=== PATIENT | male | born 1955 | race Caucasian/White ===

== ENCOUNTER 2019-11-26 11:58 | Outpatient (CLI) | payer OTHER, SELFPAY ==
--- NOTE | ~2019-11-26 | XR_ITS ---
EXAMINATION: XR chest 2V DATE: 11/26/2019 13:00 INDICATION: Gastroesophageal reflux. Preop. TECHNIQUE: Frontal and lateral views of the chest were obtained. COMPARISON: Chest 2 views 09/12/2018 FINDINGS: The chest demonstrates clear lungs without pneumonia, pleural effusion, or pneumothorax. Th e heart size is normal. IMPRESSION: 1. No acute cardiopulmonary disease. Reviewed, dictated and finalized at location A. 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
--- NOTE | 2019-11-26 12:35 | ECG_ITS ---
Measurements Intervals [place] Rate: 57 P: 54 CA: 153 QRS: -7 QRSD: 113 T: -5 QT: 406 QTc: 397 Interpretive Statements SINUS BRADYCARDIA INTRAVENTRICULAR CONDUCTION DELAY DELAYED PRECORDIAL R/S TRANSITION VOLTAGE CRITERIA FOR LVH MINIMAL Q WAVES- LATERAL LEADS BORDERLINE T WAVE ABNORMALITY- INFERIOR LEADS BORDERLINE ECG Electronically Signed On 11-26-2019 13:11:23 SILK BRUSHER by Mark Sethi D.O.
[2019-11-26 13:12] LABS: Basophils Percent Auto 0.5 % (0.2-1.2); Eosinophils Absolute Auto 0.3 K/mm3 (0-0.3); Eosinophils Percent Auto 3.3 % (0-4.4); Hematocrit 45.7 % (42.0-52.0); Hemoglobin 15.2 g/dL (14.0-18.0); Immature Granulocyte Absolute 0.01 K/mm3 (0.00-0.031); Immature Granulocyte Percent A 0.1 % (0-0.5); Lymphocytes Absolute Auto 2.39 K/mm3 (0.9-3.2); Lymphocytes Percent Auto 30.5 % (18.3-44.2); Mean Corpuscular HGB Conc 33.3 g/dl (32-36); Mean Corpuscular Hemoglobin 30.5 pg (26-34); Mean Corpuscular Volume 91.6 fl (80-100); Mean Platelet Volume 9.7 fl (7.4-10.4); Monocytes Absolute Auto 0.5 K/mm3 (0.1-0.6); Monocytes Percent Auto 6.9 % (2.6-8.5); Neutrophils Absolute Auto 4.6 K/mm3 (1.3-6.7); Neutrophils Percent Auto 58.7 % (45.5-73.1); Platelet Count Result 251 k/mm3 (150-375); Red Blood Count 4.99 M/mm3 (4.6-6.20); Red Cell Distribution Width 12.9 % (11.5-14.5); White Blood Count 7.8 K/mm3 (4.5-10.0)
[2019-11-26 13:18] LABS: Hemoglobin A1C 5.9 % (<5.7); Urine Cotinine NEGATIVE
[2019-11-26 13:21] LABS: Albumin Level 3.9 g/dL (3.5-5.1); Blood Urea Nitrogen 19 mg/dL (9-20); Calcium 9.1 mg/dL (8.4-10.2); Carbon Dioxide 31 mmol/L (22-30); Chloride 103 mmol/L (98-107); Estimated Glomerular Filt Rate > 60; Glucose 90 mg/dL (75-110); Potassium 4.1 mmol/L (3.4-5.0); Sodium 137 mmol/L (137-145)
== END 2019-11-26 11:59 | disposition home or self-care (01) ==
PROVIDERS: PCP Family Medicine; Visit Provider Orthopaedic Surgery
DX: M19.90 Unspecified osteoarthritis, unspecified site (principal); I45.9 Conduction disorder, unspecified
CPT/HCPCS: 36415; 71046; 80048; 80307; 82040; 83036; 85025; 87070; 93005

== ENCOUNTER 2020-02-19 14:57 | Outpatient (CLI) | payer OTHER, SELFPAY ==
[2020-02-19 15:27] LABS: Basophils Percent Auto 0.6 % (0.2-1.2); Eosinophils Absolute Auto 0.1 K/mm3 (0-0.3); Eosinophils Percent Auto 1.7 % (0-4.4); Hematocrit 46.6 % (42.0-52.0); Hemoglobin 15.6 g/dL (14.0-18.0); Immature Granulocyte Absolute 0.01 K/mm3 (0.00-0.031); Immature Granulocyte Percent A 0.1 % (0-0.5); Lymphocytes Absolute Auto 2.06 K/mm3 (0.9-3.2); Lymphocytes Percent Auto 28.4 % (18.3-44.2); Mean Corpuscular HGB Conc 33.5 g/dl (32-36); Mean Corpuscular Hemoglobin 30.4 pg (26-34); Mean Corpuscular Volume 90.8 fl (80-100); Mean Platelet Volume 10.4 fl (7.4-10.4); Monocytes Absolute Auto 0.4 K/mm3 (0.1-0.6); Monocytes Percent Auto 5.8 % (2.6-8.5); Neutrophils Absolute Auto 4.6 K/mm3 (1.3-6.7); Neutrophils Percent Auto 63.4 % (45.5-73.1); Platelet Count Result 244 k/mm3 (150-375); Red Blood Count 5.13 M/mm3 (4.6-6.20); Red Cell Distribution Width 13.3 % (11.5-14.5); White Blood Count 7.3 K/mm3 (4.5-10.0)
[2020-02-19 15:38] LABS: Blood Urea Nitrogen 18 mg/dL (9-20); Calcium 9.3 mg/dL (8.4-10.2); Carbon Dioxide 26 mmol/L (22-30); Chloride 106 mmol/L (98-107); Estimated Glomerular Filt Rate > 60; Glucose 84 mg/dL (75-110); Sodium 138 mmol/L (137-145)
[2020-02-19 16:05] LABS: Urine Cotinine NEGATIVE
== END 2020-02-19 14:58 | disposition home or self-care (01) ==
LOC: ANHSURGERY 14:58
PROVIDERS: PCP Family Medicine; Visit Provider Orthopaedic Surgery
DX: Z01.812 Encounter for preprocedural laboratory examination (principal); M19.90 Unspecified osteoarthritis, unspecified site
CPT/HCPCS: 36415; 80048; 80307; 82040; 85025; 86850; 86900; 86901; 87070

== ENCOUNTER 2020-02-23 00:13 | Outpatient (CLI) | payer OTHER, SELFPAY ==
[2020-02-23 16:41] LABS: SARS-CoV-2 RNA PCR Negative
== END 2020-02-23 00:14 | disposition home or self-care (01) ==
LOC: ANHCOVIDDT 00:13
PROVIDERS: PCP Family Medicine; Visit Provider Orthopaedic Surgery
DX: Z01.812 Encounter for preprocedural laboratory examination (principal); Z20.828 Contact with and (suspected) exposure to other viral communicable diseases
CPT/HCPCS: 87635; C9803; U0003

== ENCOUNTER 2020-02-25 01:21 | Day surgery (SDC) | payer OTHER, SELFPAY ==
[2019-11-26 12:15] VITALS: BP 130/74; PULSE 58; RESP 20; TEMP 36.2; O2SAT 98; BMI 30.7
[2020-02-18 11:27] VITALS: BMI 30.7
--- NOTE | 2020-02-23 13:26 | HP_ITS ---
DATE OF SERVICE: 02/25/2020 ADMIT DIAGNOSIS: Degenerative joint disease, right knee. HISTORY OF PRESENT ILLNESS: The patient is a 64-year-old male patient of Dr. Oviedo, who presents today for a total knee replacement of his right knee. He has been having pain in this knee, progressively worsening over the course of the last year. Arthroscopy done to his knee in December of 2018, which gave him temporary relief. Unfortunately, his arthritis has progressed in his knee, now [id number] in the medial compartment. He has had a medial and lateral meniscectomy, so he is not a candidate for a partial knee replacement. He has been having significant pain to the point where he feels he would rather proceed with total knee arthroplasty, rather continue nonsurgical treatment. PAST SURGERIES: Knee arthroscopy done in December of 2013. CURRENT MEDICATIONS: He takes: 1. Meloxicam 15 mg daily. 2. Omeprazole 40 mg daily. 3. Sildenafil 50 mg daily. ALLERGIES: NO KNOWN DRUG ALLERGIES. FAMILY HISTORY: Significant for arthritis. SOCIAL HISTORY: He is a nonsmoker. PHYSICAL EXAMINATION: VITAL SIGNS: He is a 64-year-old male. He is 5 feet 11 inches, 222 pounds. Other vital signs per nursing on the morning of surgery. HEENT: Grossly normal. LUNGS: Clear bilaterally. HEART: Regular rate and rhythm. EXTREMITIES: He walks without a limp or assistance. He has minimal effusion in the right knee. Range of motion is from 5 to 140. He has 2+ posterior tibial pulse. Absent dorsalis pedis pulse. No numbness or tingling in the right leg. He has normal quad strength. Hip range of motion is full without discomfort. He has mild tenderness over the medial joint line to palpation. Minimal discomfort with patellofemoral grind. Normal stability in the knee. No edema in the right lower extremity. IMAGING DATA: X-rays demonstrate [id number] arthritis in the medial compartment. He also has mild subluxation of the femur on the tibia. IMPRESSION: The patient has severe medial compartment arthritis. He has continued symptoms. At this point, he feels he would rather proceed with total knee arthroplasty. Surgical procedure as well as risks complications were discussed. All questions were answered and we will proceed. The patient will see Dr. Oviedo for presurgical clearance. He will avoid his meloxicam and any other aspirin, ibuprofen products 1 week prior to surgery. Chem panel is all within normal limits. Creatinine is 1.00, GFR greater than 60. Hemoglobin 15.2, platelets 251. Nasal swab was negative. D I MT: Bere
[2020-02-25] VITALS (11 sets, daily range): BP systolic 101–127; BP diastolic 58–76; PULSE 16–82; RESP 9–98; TEMP 36.4–36.8; O2SAT 75–100; BMI 29.7
--- NOTE | ~2020-02-25 | XR_ITS ---
EXAMINATION: XR knee RT 2V DATE: 02/25/2020 11:26 INDICATION: Total right knee arthroplasty. Postop. TECHNIQUE: 2 views of right knee were obtained. COMPARISON: Right knee radiographs 10/17/2019 FINDINGS: There is a total right knee arthroplasty with patellar resurfacing in near-anatomic alignme nt. No fracture. There is gas in the knee joint and soft tissues, consistent with recent surgery. IMPRESSION: 1. Total right knee arthroplasty in near-anatomic alignment. Reviewed, dictated and finalized at location A.
[2020-02-25] MEDS: IBUPROFEN IV 800 MG/200 ML 800 MG/200 ML BAG 400 MG IVPB (06:30)
[2020-02-25] MEDS: LACTATED RINGERS 1,000 ML 30 ML IV CONT ×2 (06:30→11:22)
--- NOTE | 2020-02-25 06:56 | P.PNAN_ITS ---
Anes - Initial Pre Proc Eval Procedure: Operation Date: 02/25/20 07:30 Proposed Procedures p Right Total Knee Arthroplasty - Zay Shelton MD Date/Time: 02/25/20 06:56 Surgeon: Zay Shelton MD Pre Op Diagnosis: OA Right Knee Patient Data Age: 64 Gender: M Height: 6 ft Weight: 99.3 kg Last Vital Signs Temp 97.2 F L 11/26/19 12:15 Pulse 58 L 11/26/19 12:15 Resp 20 11/26/19 12:15 BP 130/74 11/26/19 12:15 Pulse Ox 98 11/26/19 12:15 Allergies Allergy/AdvReac Type Severity Reaction Status Date / Time No Known Allergies Allergy Mild Unverified 02/25/20 06:45 Home Medications Medication Instructions Recorded Confirmed Type omeprazole 40 mg capsule,delayed 40 mg PO DAILY #90 cap 11/18/19 02/25/20 Rx release Patient hx anesthesia problems: none Family hx anesthesia problems: none [facility] Past Medical History Medical History (Updated 02/10/20 @ 11:29 by Sydnie Bay PA-C) Osteoarthritis Osteoarthritis Surgical History Surgical History (Updated 11/03/19 @ 08:30 by Chhaya Dee MA) History of endoscopy 12/2014 History of tonsillectomy Social History Social History (Updated 11/03/19 @ 08:28 by Chhaya Dee MA) Smoking status: Never smoker Second hand tobacco smoke exposure: No Alcohol intake: current Drinks per week: 20 Substance use: never Substance use type: does not use Additional living arrangements comments: [facility] 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 (if verbalized by the patient): Male Anes - Eval Final PreProcedure Day of Procedure 02/25/20 06:56 Patient weight: overweight Heart: regular rate and rhythm Lungs: clear to auscultation Airway: Mallampati scale class II Neurological: alert and oriented Last oral intake: >/= 8 hours ASA classification: II Emergent: no Anesthetic plan: proceed Anesthesia type and monitoring: general LMA and standard monitoring Informed Consent: The patient's anesthetic plan and its attendant risks and benefits were discussed with the patient/family/POA. Questions were solicited and answers provided to the satisfaction of the patient/family/POA.
--- NOTE | 2020-02-25 07:03 | SUR.PREOP ---
[id number] DR [place] INFORMED OF SCRATCH NOTED TO RIGHT LATERAL HAWK.
--- NOTE | 2020-02-25 07:25 | WPDHPUPDATE1 ---
History and Physical Update Update Date/Time: 02/25/20 07:25 History and Physical has been reviewed, including an updated exam of the patient. There are NO changes in the patient's condition. Risks, benefits, and alternatives have been discussed and questions answered. Patient agrees to proceed with procedure.
[2020-02-25] MEDS: ceFAZolin 2 GM/D5W 50 ML 2 GM/50 ML BAG IVPB (07:30)
[2020-02-25] MEDS: ceFAZolin SODIUM 1 GM VIAL 3 GM IRRIGATION (08:15)
[2020-02-25] MEDS: ceFAZolin SODIUM 1 GM VIAL IV PUSH (10:09)
--- NOTE | 2020-02-25 11:09 | PM.PROC ---
Procedure Note - Detailed Date of procedure: 02/25/20 Pre-op diagnosis: OA Right Knee Post-op diagnosis: same Procedure performed: Right total knee arthroplasty Description of procedure: Patient was brought to the operating room and general anesthesia was administered right leg prepped draped usual fashion pretty sick received weight based vancomycin 2 g of Ancef preoperatively 1 g of tranexamic acid. Limb is examined tourniquet elevated to 250 mmHg. A 7 in longitudinal incision was made in the standard parapatellar arthrotomy utilized. Infrapatellar and suprapatellar fat pads were excised a course of synovectomy carried out. He had moderate to high-grade cartilage thinning in the central patella and patellar resurfacing was performed. Initial patellar thickness was 25 mm and was cut to 16.5 mm. The bone quality was excellent. A guide misael was inserted down the femoral canal after aspiration canal contents using the 5 degree valgus cutting bushing 10 mm of bone removed the distal femur. Next the tibial plateau was cut. Our initial cut left a little bit of cartilage on the posterior aspects of both medial and lateral tibial plateau so additional 2 mm of bone was removed from the tibia at this time. This could remnants were excised. PCL was recessed. Medial tibial osteophyte removed. In flexion the knee accepted the 10 mm spacer block medially and 12 mm spacer block laterally. Whitesides line was drawn on the femur and the femoral sizing guide was set to 3? of external rotation which matched Whitesides line and was anticipated to balance the flexion gaps. Posterior referencing pin holes were placed. The femur was cut to 72.5 vanguard. The knee was trialed. The knee came out to extension with a 10 mm insert however there is a little bit of extra plate in flexion. The tibia was sized to a size 79 Bankart. Rotation was set referenced off the medial 3rd of tubercle anterior cortex of the tibial plateau and the foot and this was punched. This fit line to line posterolateral to anteromedial. We found that the 12 mm insert gave appropriate stability at 90? and a 10 gave appropriate stability in extension. An additional 2 mm of bone removed the distal femur. Chamfer cuts revisited. Trial femur was placed and residual posterior femoral bone was removed. We then trialed and the knee came out easily to full extension with a 12 insert the 2 mm plate and extension medially and laterally. Appropriate stability at 90?. Lug holes were drilled in the femur. This patella was sized to a size 37 by 8.6 and with the trialing this gave a composite thickness of 25 mm. The trial components were removed as step drill was used to make multiple perforations in the dense bone of the tibial plateau as well as the distal posterior femur. Bony surfaces were thoroughly irrigated and dried. Using the diffuse cement 1 of the packages continue gentamicin powder, the cement was medially applied the tibial component then the femoral component cement applied to the tibial pressurized in the tibial component fully seated. Cement applied to the femur and the size 72.5 CR femoral component fully seated the knee brought to extension with a 12 mm 5 and 1 insert for cement pressurization and the 37 x 8.6 mm patella was cemented. Tourniquet was released at 115 minutes. The cement allowed to harden excess cement was sought for removed hemostasis was achieved. We trialed the size 12 mm insert and we had a little bit too much play I thought to anterior stress engineer flexion. There is extension. A trial 13 mm PS insert which had perfect amount of stability and the plate at 90? to anterior drawer and gravity flexion 40 and came out to full extension with the 10 mm medial and mm lateral opening. We chose the 13 mm insert for the 79 mm vanguard tray and this was placed without difficulty and secured with a locking pin. Wound was again irrigated with antibiotic solution. Patellar tracking was perfe
--- NOTE | 2020-02-25 12:20 | ADMGEN ---
This patient, Scottie Benitez, was admitted to 2 Medical Room 242-. Patient/family oriented to hospital policies and general routines including ID bracelet, bed and alarms, visiting hours, pain management, procedures, bathroom and other care routines, personal items, smoking policy, room service/diet, and visiting hours. Valuables list has been completed. Information on how to activate the Rapid Response Team has been discussed. Patient/Family are encouraged to report perceived risks to care and to ask questions if they do not understand what they are told or what they should do.
[2020-02-25] MEDS: ACETAMINOPHEN 500 MG TABLET 1000 MG PO ×3 (12:53→23:31)
[2020-02-25] MEDS: SODIUM CHLORIDE 0.9% IV 1,000 ML 125 ML IV CONT (12:54)
[2020-02-25] MEDS: SENNOSIDES 8.6 MG TABLET PO (16:33)
[2020-02-25] MEDS: DOCUSATE SODIUM 100 MG CAPSULE PO (16:34)
[2020-02-25] MEDS: PANTOPRAZOLE 40 MG TABLET PO (21:54)
[2020-02-26 01:07] VITALS: BP 140/65; PULSE 83; RESP 16; TEMP 36.8; O2SAT 98
[2020-02-26 05:07] VITALS: BP 154/74; PULSE 81; RESP 16; TEMP 36.7; O2SAT 98
[2020-02-26 05:27] LABS: Basophils Percent Auto 0.1 % (0.2-1.2); Hematocrit 42.6 % (42.0-52.0); Hemoglobin 14.2 g/dL (14.0-18.0); Immature Granulocyte Absolute 0.08 K/mm3 (0.00-0.031); Immature Granulocyte Percent A 0.6 % (0-0.5); Lymphocytes Absolute Auto 1.75 K/mm3 (0.9-3.2); Lymphocytes Percent Auto 13.1 % (18.3-44.2); Mean Corpuscular HGB Conc 33.3 g/dl (32-36); Mean Corpuscular Hemoglobin 30.3 pg (26-34); Mean Platelet Volume 10.3 fl (7.4-10.4); Monocytes Absolute Auto 1.2 K/mm3 (0.1-0.6); Neutrophils Absolute Auto 10.3 K/mm3 (1.3-6.7); Neutrophils Percent Auto 77.2 % (45.5-73.1); Platelet Count Result 214 k/mm3 (150-375); Red Blood Count 4.68 M/mm3 (4.6-6.20); Red Cell Distribution Width 13.8 % (11.5-14.5); White Blood Count 13.4 K/mm3 (4.5-10.0)
[2020-02-26 05:42] LABS: Blood Urea Nitrogen 16 mg/dL (9-20); Calcium 8.3 mg/dL (8.4-10.2); Carbon Dioxide 27 mmol/L (22-30); Chloride 104 mmol/L (98-107); Estimated CRCL calculation 78 ml/min; Estimated Glomerular Filt Rate > 60; Glucose 115 mg/dL (75-110); Potassium 3.8 mmol/L (3.4-5.0); Sodium 135 mmol/L (137-145)
[2020-02-26] MEDS: ACETAMINOPHEN 500 MG TABLET 1000 MG PO ×2 (05:42→12:14)
--- NOTE | 2020-02-26 07:02 | PM.PNORT ---
Progress Note: A&P Additional Plan POD 1 alert, avss ,pt had increased pain overnight when block wore off. pain is better controlled now, wd-dry NVI, was out of bed yesterday. labs-noted, will have pt do both PT sessions today then plan to send home if does well Subjective Subjective Date/Time Seen: 02/26/20 07:02 Objective Data Vital Signs Vital Signs: Vital Signs - 24 hr 02/25/20 11:35 02/25/20 11:37 02/25/20 11:51 Temperature 36.5 C Pulse Rate 72 75 74 Respiratory Rate 9 L 11 L 14 Blood Pressure 118/76 104/72 101/76 Pulse Oximetry 97 99 100 02/25/20 12:05 02/25/20 12:15 02/25/20 12:45 Temperature 36.4 C 36.4 C Pulse Rate 78 71 68 Respiratory Rate 13 14 16 Blood Pressure 103/58 L 114/66 118/72 Pulse Oximetry 97 97 99 02/25/20 13:15 02/25/20 14:15 02/25/20 18:00 Temperature 36.4 C 36.6 C 36.4 C Pulse Rate 70 16 L 70 Respiratory Rate 16 98 H 16 Blood Pressure 122/68 116/66 115/71 Pulse Oximetry 99 75 L 98 02/25/20 21:44 02/26/20 01:07 02/26/20 05:07 Temperature 36.8 C 36.8 C 36.7 C Pulse Rate 82 83 81 Respiratory Rate 16 16 16 Blood Pressure 127/66 140/65 154/74 H Pulse Oximetry 100 98 98 Intake/Output Intake/Output: Intake & Output 02/23/20 02/24/20 02/25/20 02/26/20 23:59 23:59 23:59 23:59 Intake Total 2686 200 Output Total 1000 1200 Balance 1686 -1000 Meds/Results Medications: Active Medications Generic Name Dose Route Start Last Admin Trade Name Freq PRN Reason Stop Dose Admin Acetaminophen 1,000 mg 02/25/20 11:20 02/26/20 05:42 Tylenol Tablet PO 1,000 mg Q6H [facility] Administration Apixaban 2.5 mg 02/26/20 09:00 Eliquis PO 03/10/20 21:01 Q12HR [facility] Celecoxib 200 mg 02/26/20 08:00 Celebrex PO DAILY@0800 ESTEB[facility] Docusate Sodium 100 mg 02/25/20 17:00 02/25/20 16:34 Colace Capsule PO 100 mg BID [facility] Administration Cefazolin Sodium 1 gm in 50 mls @ 100 mls/hr 02/25/20 16:00 02/25/20 23:59 Ancef 1 Gm/D5w 50 Ml Pm IVPB 02/26/20 08:29 Infused Q8H ESTEB[facility] Infusion Vancomycin HCl 1,000 mg in 250 mls @ 250 mls/hr 02/25/20 19:00 02/26/20 06:40 Vancomycin 1,000 Mg/D5w 250 Ml IVPB 02/26/20 07:59 250 mls/hr Q12H ESTEBAN Administration Naloxone HCl 0.1 mg 02/25/20 11:20 Narcan IV PUSH Q2M PRN Opiate Reversal Oxycodone HCl 5 mg 02/25/20 11:20 02/26/20 07:01 Roxicodone Ir Tablet PO 5 mg Q4H ESTEB[facility] Administration Oxycodone HCl 5 mg 02/25/20 11:20 02/25/20 21:53 Roxicodone Ir Tablet PO 5 mg Q4H PRN Administration Pain Rated 7-10 Pantoprazole Sodium 40 mg 02/25/20 21:00 02/25/20 21:54 Protonix PO 40 mg Q12HR [facility] Administration Polyethylene Glycol 17 gm 02/26/20 09:00 Miralax PO QAM [facility] Senna 8.6 mg 02/25/20 17:00 02/25/20 16:33 Senokot Tablet PO 8.6 mg BID ESTEBAN Administration Radiology Results: ITS Impressions Knee X-Ray 02/25/20 11:34 IMPRESSION: 1. Total right knee arthroplasty in near-anatomic alignment. Labs Labs: Laboratory Results - last 24 hr 02/26/20 02/26/20 04:40 04:40 WBC 13.4 H RBC 4.68 Hgb 14.2 Hct 42.6 MCV 91.0 MCH 30.3 MCHC 33.3 RDW 13.8 Plt Count 214 MPV 10.3 Immature Gran % (Auto) 0.6 H Neut % (Auto) 77.2 H Lymph % (Auto) 13.1 L [place] % (Auto) 9.0 H Eos % (Auto) 0.0 Baso % (Auto) 0.1 L Lymph # (Auto) 1.75 [place] # (Auto) 1.2 H Eos # (Auto) 0.0 Baso # (Auto) 0.0 Abs Immat Gran (auto) 0.08 H Absolute Neuts (auto) 10.3 H Absolute Nucleated RBC 0.0 Nucleated RBC % 0.0 Sodium 135 L Potassium 3.8 Chloride 104 Carbon Dioxide 27 BUN 16 Creatinine 0.90 Estim Creat Clear Calc 78 Estimated GFR > 60 Glucose 115 H Calcium 8.3 L
--- NOTE | 2020-02-26 09:03 | DS_ITS ---
DATE OF DISCHARGE: 02/26/2020 DIAGNOSIS: Degenerative joint disease, right knee. HOSPITAL COURSE: The patient is a 64-year-old male, who underwent right total knee arthroplasty by Dr. Shelton on 02/25/2020, underwent the procedure without any complications. Postoperatively, he has been afebrile. Vital signs have been stable. Neurovascularly intact. His wound is dry. He has a Mepilex dressing over it. He was up the day of surgery, walking with therapy. He had increased pain overnight when the soft tissue block wore off. On postop day 1 morning, pain was better, under control. He was taken 2 oxycodone. He is on scheduled Tylenol as well as Celebrex once a day. He is weightbearing as tolerated. The patient will be discharged home later on 02/25 after doing therapy and also getting his postop antibiotics. Again, he will go home with his 2 weeks of Eliquis for DVT prophylaxis and then baby aspirin twice a day following that. He will go home with Celebrex once a day, scheduled Tylenol, as well as oxycodone 5 mg. He is also going to be on MiraLAX and Senokot. He takes omeprazole daily at home and he will continue this as well. Postop day 1, his hemoglobin was 14.2, and his platelets were 214. Sodium was slightly low 135, but his Chem panel was within normal limits. The patient was advised to keep the leg elevated at home to prevent swelling. He will change his Mepilex dressing in a week and maintain it until he is seen in the office. The patient was also advised to do his exercises on a regular basis and also be mindful of any swelling in the knee, foot, or leg. He has outpatient physical therapy starting on Sunday. If he has any questions or concerns when he goes home, he is to call the office. Otherwise, we will see him at his appointed date. Oralia I MT: Bere
[2020-02-26 09:34] VITALS: O2SAT 97
[2020-02-26] MEDS: PANTOPRAZOLE 40 MG TABLET PO (10:02)
[2020-02-26] MEDS: polyethylene glycoL 3350 17 GM POWD.PACK PO (10:02)
[2020-02-26] MEDS: CELECOXIB 200 MG CAPSULE PO (10:03)
[2020-02-26] MEDS: APIXABAN 2.5 MG TABLET PO (10:03)
[2020-02-26] MEDS: SENNOSIDES 8.6 MG TABLET PO (10:03)
[2020-02-26] MEDS: DOCUSATE SODIUM 100 MG CAPSULE PO (10:03)
[2020-02-26 10:05] VITALS: BP 133/67; PULSE 75; RESP 18; TEMP 36.6; O2SAT 96
--- NOTE | 2020-02-26 10:50 | PM.IMCN ---
Assessment and Plan Assessment and plan (1) Status post total right knee replacement: Code(s): Z96.651 - Presence of right artificial knee joint Status: Acute Assessment and Plan: Severe OA right knee now POD#1 s/p R total knee arthroplasty by Dr Shelton. Wound care, DVT prophylaxis, pain control per ortho. (2) Chronic GERD: Code(s): K21.9 - Gastro-esophageal reflux disease without esophagitis Status: Acute Assessment and Plan: Continue pantoprazole. No acute issues. HPI Data of Consult Consult date: 02/26/20 Requesting Physician: Zay Shelton MD Primary Care Provider: Kirk Oviedo MD Consult Narrative Narrative: Date of Service is 02/26/20 at 1045 We have been asked to see this patient in consultation at the request of Dr Shelton for postoperative medical management. This supervising physician for this medical consultation is Dr Lindsey Frias. Mr. Benitez is a 64yo M with history of osteoarthritis and GERD who is POD#1 status post right total knee arthroplasty by Dr Shelton. He was found to have severe medial compartment osteoarthritis of the right knee and elected to proceeded with replacement. He is feeling well today, rates his pain 5/10 at time of my exam and did well postoperatively. He has tolerated breakfast without nausea or vomiting. No BM yet but has passed flatus. No GERD symptoms today. Plans to be discharged this afternoon. Review of Systems Review of Systems: Narrative: Twelve systems were reviewed with pertinent positives and negatives as per HPI. [facility] Past Medical History Medical History Chronic GERD Erectile dysfunction Osteoarthritis Surgical History Surgical History H/O meniscectomy of right knee December 2018 History of endoscopy 12/2014 History of tonsillectomy Status post total right knee replacement 02/25/[address] Shelton Family History Family History Father Family history of Alzheimer's disease Mother Family history of chronic obstructive pulmonary disease Social History Social History (Updated 11/03/19 @ 08:28 by Chhaya Dee MA) Smoking status: Never smoker Second hand tobacco smoke exposure: No Alcohol intake: current Drinks per week: 20 Substance use: never Substance use type: does not use Additional living arrangements comments: [facility] 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 (if verbalized by the patient): Male Spiritual care concerns: No Meds Home Medications and Allergies Home Medications Medication Instructions Recorded Confirmed Type omeprazole 40 mg capsule,delayed 40 mg PO DAILY #90 cap 11/18/19 02/25/20 Rx release acetaminophen 1,000 mg PO Q6H #90 tablet 02/26/20 Rx apixaban [Eliquis] 2.5 mg PO Q12HR #27 tablet 02/26/20 Rx aspirin [Adult Aspirin Regimen] 81 mg PO BID #60 tablet 02/26/20 Rx celecoxib [Celebrex] 200 mg PO DAILY@0800 #50 cap 02/26/20 Rx oxycodone 5 mg PO Q4H #50 tablet 02/26/20 Rx polyethylene glycol 3350 [Miralax] 17 g PO QAM #30 ea 02/26/20 Rx sennosides [Senokot] 8.6 mg PO BID #60 tablet 02/26/20 Rx Allergies Allergy/AdvReac Type Severity Reaction Status Date / Time No Known Allergies Allergy Mild Verified 02/25/20 12:59 Vital Signs Last Vital Signs Temp 97.9 F 02/26/20 10:05 Pulse 75 02/26/20 10:05 Resp 18 02/26/20 10:05 BP 133/67 02/26/20 10:05 Pulse Ox 96 02/26/20 10:05 Exam Narrative: Exam Narrative: General: Male resting comfortably in bed in no acute distress. HEENT: Normocephalic, EOMI, oral mucosa moist. Cardiovascular: Rate and rhythm are regular. Respiratory: Lungs clear to auscultation all abad. Non-labored breathing. Abdome
== END 2020-02-26 12:53 | disposition home or self-care (01) ==
LOC: ANHSURGERY 06:04 → ANH2MED 12:22
PROVIDERS: PCP Family Medicine; Visit Provider Orthopaedic Surgery
PROC: (CPT 27447; principal; 2020-02-25 07:30)
DX: M17.11 Unilateral primary osteoarthritis, right knee (principal)
CPT/HCPCS: 27447; 36415; 73560; 80048; 85025; 97110; 97116; 97161; 97165; 97535; A9270; C1713; C1776; J0131; J0171; J0690; J1100; J1170; J1741; J2250; J2270; J2405; J2704; J2795; J3010; J3370; J7030; J7120

== ENCOUNTER 2021-08-08 08:27 | Outpatient (CLI) | payer OTHER, MEDICARE, SELFPAY ==
--- NOTE | 2021-08-30 13:04 | WPDSLEEPSTUD ---
Sleep Study Date of Study: 08/08/21 <Anca Chaney, DO - Last Filed: 08/30/21 13:29> Ordering Provider: DINAH Kate <Anca Chaney, DO - Last Filed: 08/30/21 13:29> Interpreting Physician: Anca Chaney DO <Anca Chaney, DO - Last Filed: 08/30/21 13:29> Sleep Study Type: Polysomnogram <Anca Chaney DO - Last Filed: 08/30/21 13:29> Height: 1.83 m <Anca Chaney DO - Last Filed: 08/30/21 13:29> Weight: 90.718 kg <Anca Chaney DO - Last Filed: 08/30/21 13:29> Body Mass Index: 27.1 <Anca Chaney DO - Last Filed: 08/30/21 13:29> Neck Circumference (inches): 16 <Anca Chaney DO - Last Filed: 08/30/21 13:29> Lorida: 0 <Anca Chaney DO - Last Filed: 08/30/21 13:29> Reason for Sleep Study Snoring, witnessed apnea. <Anca Chaney DO - Last Filed: 08/30/21 13:29> Sleep History The patient is a 66-year-old male with chronic GERD and arthritis that had a sleep study ordered by his primary care due to a 5 year history of snoring and witnessed apnea. The patient denies awakening from sleep short of breath. He occasionally awakens at night with heartburn, belching or cough. He occasionally snores loud enough that others complain. He denies having trouble sleeping when he has a cold. He occasionally wakes up gasping for air throughout the night. He occasionally has breathing problems at night observed by others. He rarely sweats excessively at night. He denies heart palpitations or irregular heartbeats during the night. He denies falling asleep during the day and while driving. He denies sleep paralysis, cataplexy and hypnagogic / hypnopompic hallucinations. He denies having trouble at school or work due to sleepiness. He rarely has nightmares. He occasionally has thoughts racing through his mind. He denies feeling sad or depressed. He rarely has anxiety. He denies noticing parts of his body jerk. He denies kicking during the night. He denies crawling and aching feelings in his legs as well as leg pain during the night. He occasionally grinds his teeth during sleep but never awakens with jaw pain in the morning. He denies being bothered by pain during the day and being awakened by pain during the night. He denies waking up feeling stiff in the morning with sore and achy muscles. He goes to bed at 11:00 p.m. on weekdays and midnight on the weekends. It takes him 30 minutes to fall asleep. He wakes up 6-7 times per night to urinate. He can fall back asleep within 15-20 minutes. He awakens at 7:00 a.m. on weekdays and 8:00 a.m. on weekends. He typically gets between 7 and 8 hours of sleep per night. He will stay in bed for 2 hours after awakening in the morning. He currently lives alone. He does not consume any caffeinated beverages within 2 hours of bedtime. He does not engage in physical exercise before bedtime. He will watch television before falling asleep. He does not take naps in the afternoon or the evening. He has 20 alcoholic beverages per week. He denies tobacco and recreational drug use. <Anca Chaney DO - Last Filed: 08/30/21 13:29> [facility] Past Medical History Medical History: Medical History (Updated 08/30/21 @ 13:23 by Anca Chaney DO) Chronic GERD Erectile dysfunction Osteoarthritis <Anca Chaney DO - Last Filed: 08/30/21 13:29> Surgical History Surgical History: Surgical History H/O meniscectomy of right knee December 2018 History of endoscopy 12/2014 History of tonsillectomy Status post total right knee replacement 02/25/[address] Shelton <Anca Chaney DO - Last Filed: 08/30/21 13:29> Family History Family History: Family History Father Family history of Alzheimer's disease Mother Famil
[2021-08-30 13:14] VITALS: BMI 27.1
== END 2021-08-09 06:02 | disposition home or self-care (01) ==
PROVIDERS: PCP Family Medicine; Visit Provider Nurse Practitioner Family
DX: G47.30 Sleep apnea, unspecified (principal); G47.33 Obstructive sleep apnea (adult) (pediatric)
CPT/HCPCS: 95810

== ENCOUNTER → 2021-11-10 14:08 | Outpatient (CLI) | payer MEDICARE, SELFPAY ==
--- NOTE | ~2021-11-10 | XR_ITS ---
XR shoulder LT min 2V DATE: 11/10/2021 14:31 INDICATION: Left shoulder pain TECHNIQUE: 4 views COMPARISON: None FINDINGS: There is prominent spurring at the left acromioclavicular joint. No fracture or dislocation, periosteal reaction or bone destruction. No abnormal soft tissue calcific ation. IMPRESSION: Prominent degenerative change and spurring at left acromioclavicular joint Reviewed, dictated and finalized at location B. IMPRESSION: Prominent degenerative change and spurring at left acromioclavicula r joint
== END ==
PROVIDERS: PCP Family Medicine; Visit Provider Nurse Practitioner Family
DX: M19.012 Primary osteoarthritis, left shoulder (principal)
CPT/HCPCS: 73030

== ENCOUNTER 2024-01-04 02:27 | Day surgery (SDC) | payer MEDICARE, SELFPAY ==
[2023-12-18 14:57] VITALS: BMI 28.8
[2024-01-04 09:57] VITALS: BP 145/82; PULSE 70; RESP 18; TEMP 36; O2SAT 100; BMI 28.8
[2024-01-04] MEDS: LACTATED RINGERS 1,000 ML 150 ML IV CONT (10:01)
--- NOTE | 2024-01-04 10:01 | P.PNAN_ITS ---
Anes - Initial Pre Proc Eval Procedure: Operation Date: 01/04/24 11:00 Proposed Procedures p Esophagogastroduodenoscopy & Screening Colonoscopy - Craig Bose MD Date/Time: 01/04/24 10:01 Surgeon: Craig Galindo MD Pre Op Diagnosis: neoplasm screening Patient Data Age: 68 Gender: M Height: 1.83 m Weight: 96.2 kg Last Vital Signs Temp 36.0 C L 01/04/24 09:57 Pulse 70 01/04/24 09:57 Resp 18 01/04/24 09:57 BP 145/82 H 01/04/24 09:57 Pulse Ox 100 01/04/24 09:57 O2 Del Method Room Air 01/04/24 09:57 Allergies Allergy/AdvReac Type Severity Reaction Status Date / Time No Known Allergies Allergy Mild Verified 01/04/24 09:55 Home Medications Medication Instructions Recorded Confirmed Type acetaminophen 500 mg tablet 1,000 mg PO Q6H #90 tabs 02/26/20 01/04/24 Rx sildenafil 50 mg tablet 50 mg PO DAILY PRN sexual activity 09/25/23 01/04/24 Rx #10 tabs omeprazole 40 mg capsule,delayed See Rx Instructions .Route 11/08/23 01/04/24 Rx release .COMPLEX #90 caps Patient hx anesthesia problems: none Family hx anesthesia problems: none Results Review: All pre-operative results and documents have been reviewed as part of the pre- operative evaluation. [facility] Past Medical History Medical History Chronic GERD Erectile dysfunction Osteoarthritis Surgical History Surgical History H/O meniscectomy of right knee December 2018 History of endoscopy 12/2014 History of tonsillectomy Status post total right knee replacement 02/25/[address] Shelton Family History Family History Father Family history of Alzheimer's disease Mother Family history of chronic obstructive pulmonary disease Social History Social History Smoking status: Never smoker Second hand tobacco smoke exposure: No Alcohol intake: current Drinks per week: 20 Substance use: never Substance use type: does not use Living arrangements: alone Additional living arrangements comments: Vreo Wandy 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 (if verbalized by the patient): Male Sexual Orientation (if Verbalized by the Patient): Straight or Heterosexual Spiritual care concerns: No Anes - Eval Final PreProcedure Day of Procedure 01/04/24 10:01 Patient weight: overweight Heart: regular rate and rhythm Lungs: clear to auscultation Airway: Mallampati scale class II Neurological: alert and oriented Last oral intake: >/= 8 hours ASA classification: II Emergent: no Anesthetic plan: proceed Anesthesia type and monitoring: general GIVS and standard monitoring Results Review: All pre-operative results and documents have been reviewed as part of the pre- operative evaluation. Informed Consent: The patient's anesthetic plan and its attendant risks and benefits were discussed with the patient/family/POA. Questions were solicited and answers provided to the satisfaction of the patient/family/POA.
--- NOTE | 2024-01-04 10:41 | PM.HPGS ---
History of Present Illness History of Present Illness Consent: Risks, benefits, and alternatives have been discussed and questions answered. Patient agrees to proceed with procedure. Chief complaint: neoplasm screening Narrative: Scottie Benitez is a 68 year old male with gerd on omeprazole but symptomatic if skips a dose, last colonoscopy 2012 Review of Systems Review of Systems: All systems reviewed & are unremarkable except as noted in HPI and below PMFSH Past Medical History Medical History (Updated 01/04/24 @ 10:43 by Craig Galnido MD) Chronic GERD Colon cancer screening Erectile dysfunction Osteoarthritis Surgical History Surgical History H/O meniscectomy of right knee December 2018 History of endoscopy 12/2014 History of tonsillectomy Status post total right knee replacement 02/25/[address] Shelton Family History Family History Father Family history of Alzheimer's disease Mother Family history of chronic obstructive pulmonary disease Social History Social History Smoking status: Never smoker Second hand tobacco smoke exposure: No Alcohol intake: current Drinks per week: 20 Substance use: never Substance use type: does not use Living arrangements: alone Additional living arrangements comments: Vero Saba 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 (if verbalized by the patient): Male Sexual Orientation (if Verbalized by the Patient): Straight or Heterosexual Spiritual care concerns: No Meds Home Medications and Allergies Home Medications Medication Instructions Recorded Confirmed Type acetaminophen 500 mg tablet 1,000 mg PO Q6H #90 tabs 02/26/20 01/04/24 Rx sildenafil 50 mg tablet 50 mg PO DAILY PRN sexual activity 09/25/23 01/04/24 Rx #10 tabs omeprazole 40 mg capsule,delayed See Rx Instructions .Route 11/08/23 01/04/24 Rx release .COMPLEX #90 caps Allergies Allergy/AdvReac Type Severity Reaction Status Date / Time No Known Allergies Allergy Mild Verified 01/04/24 09:55 Vital Signs Vital Signs - 24 hr 01/04/24 09:57 Temperature 96.8 F L Pulse Rate 70 Respiratory Rate 18 Blood Pressure 145/82 H Pulse Oximetry 100 Oxygen Delivery Room Air Exam Const: General: comfortable and no acute distress HENMT: Face/Nose/Sinus: Normal nares present Eyes: General: appearance normal, both eyes and all related structures Neck: Neck: no JVD Resp: Auscultation: clear to auscultation bilaterally Cardio: Rate: regular rate Rhythm: regular rhythm GI: Inspection: non-distended GI Palp: Yes Soft to palpation Skin: General skin exam: normal color Neuro: General: gait normal Speech: normal speech Extrem: General: normal to inspection Psych: Mental Status: mental status grossly normal Assessment and Plan Assessment and plan (1) Chronic GERD: Code(s): K21.9 - Gastro-esophageal reflux disease without esophagitis Status: Acute Assessment and Plan: egd with bx on ppi (2) Colon cancer screening: Code(s): Z12.11 - Encounter for screening for malignant neoplasm of colon Status: Acute Assessment and Plan: colonoscopy
--- NOTE | 2024-01-04 11:00 | SUR.OPER ---
EGD end: 105 COLONOSCOPY START: 1058
[2024-01-04 11:13] VITALS: BP 109/66; PULSE 55; RESP 19; O2SAT 96
[2024-01-04 11:23] VITALS: BP 120/71; PULSE 59; RESP 15; O2SAT 98
[2024-01-04 11:33] VITALS: BP 137/68; PULSE 52; RESP 24; O2SAT 99
== END 2024-01-04 11:55 | disposition home or self-care (01) ==
PROVIDERS: PCP Family Medicine; Visit Provider Internal Medicine Gastroenterology
PROC: 0DJ08ZZ Inspection of Upper Intestinal Tract, Via Natural or Artificial Opening Endoscopic (ICD-10-PCS; CPT 43235; principal; 2024-01-04 11:00)
DX: Z12.11 Encounter for screening for malignant neoplasm of colon (principal); D12.0 Benign neoplasm of cecum; K57.30 Diverticulosis of large intestine without perforation or abscess without bleeding; K64.8 Other hemorrhoids; K29.50 Unspecified chronic gastritis without bleeding; K44.9 Diaphragmatic hernia without obstruction or gangrene; K21.9 Gastro-esophageal reflux disease without esophagitis
CPT/HCPCS: 45380; 43239; 88305; J2704; J7120

== ENCOUNTER 2024-05-14 08:39 | Outpatient (CLI) | payer MEDICARE, SELFPAY ==
--- NOTE | 2024-06-12 20:21 | WPDHOMESLEEP ---
Sleep Study - Home Unattended Date of Study: 05/14/24 Ordering Provider: Erick Luz PA-C Interpreting Provider: Margaux Lux MD Home Sleep Study Type: Watch PAT Height: 1.83 m Weight: 95.254 kg Body Mass Index: 28.5 Neck Circumference (inches): 17 [place]: 2 Reason for Sleep Study Witnessed apneas and grinding teeth for at least 5 years, now using an oral appliance * 08/08/2021 - Attended PSG with apnea hypopnea index 13.4, central AHI 0, REM AHI 40.5, lowest saturation 70%; APAP was recommended Sleep History Scottie Benitez is a 68-year-old man with a diagnosis of obstructive sleep apnea initially made in 2020, AHI was 13.6 without central apneas. A recommendation for APAP was made. It is not clear if he ever tried PAP therapy. He was treated with a mouthpiece by his dentist. He continued to have witnessed apneas. In February 2024, he was fitted with a oral appliance. He is now having a repeat sleep test to determine if the appliance is effective. He wakes up during the night. He never awakens from sleep feeling short of breath. He occasionally awakens at night with heartburn, belching or coughing. He rarely snores and rarely snores loudly enough that others complain. He rarely has difficulty sleeping when he has a cold. He does not wake up gasping for breath during the night. He occasionally has breathing problems at night observed by others. He occasionally sweats excessively at night. He does not notice his heart pounding or beating irregularly at night. He does not fall asleep during the day, does not fall asleep involuntarily or while driving. He does not experience loss of muscle tone with strong emotion. He does not have daytime difficulties due to excessive sleepiness. He does not feel paralyzed on waking or falling asleep. He frequently has vivid dreamlike scenes upon awakening or falling asleep. He does not feel afraid to go to sleep. He occasionally has nightmares. He constantly remembers his dreams. He frequently has racing thoughts. He does not feel sad, depressed or anxious. He does not notice parts of his body jerking. He does not kick at night. He occasionally has crawling and aching feelings in his legs. He occasionally has leg pain at night. He occasionally has morning jaw pain. He frequently grinds his teeth during sleep. He rarely is bothered by pain during the day. He is not awakened by pain during the night. He occasionally wakes up feeling stiff in the morning with sore achy muscles and pain in the neck and spine. Normal bedtime is 11:00 p.m. falling asleep within 30 minutes but sometimes taking up to an hour, typically waking 4 times during the night to urinate and reposition on his other side. He is able to return to sleep within 15 minutes. His normal wake time is 8:00 a.m.. He estimates getting 7-8 hours of sleep at night. On weekends, bedtime is 1 a.m. and wake time is 9:00 a.m.. He does not take naps. Habits: Tobacco: never smoked Caffeine: 2 servings per day Alcohol: 4 beverages per day Recreational substances: none PMFSH Past Medical History Medical History (Updated 06/12/24 @ 21:11 by Margaux Lux MD) Chronic GERD Colon cancer screening Erectile dysfunction VICK (obstructive sleep apnea) Osteoarthritis Surgical History Surgical History H/O meniscectomy of right knee December 2018 History of endoscopy 12/2014 History of tonsillectomy Status post total right knee replacement 02/25/[address] Shelton Family History Family History Father Family history of Alzheimer's disease Mother Family history of chronic obstructive pulmonary disease Social History Social History Smoking status: Never smoker Second hand tobacco smoke exposure: No Alcohol
[2024-06-12 21:34] VITALS: BMI 28.5
== END 2024-06-09 15:45 | disposition home or self-care (01) ==
LOC: ANHCSM 08:40
PROVIDERS: PCP Family Medicine; Visit Provider Physician Assistant
DX: G47.33 Obstructive sleep apnea (adult) (pediatric) (principal); R06.83 Snoring; R06.00 Dyspnea, unspecified
CPT/HCPCS: 95800